=== PATIENT | female | born 1940 | race Caucasian/White ===

== ENCOUNTER 2019-05-29 23:43 | Emergency (ER) | payer MEDICARE, MEDICAID ==
--- NOTE | 2019-05-30 03:09 | ED ---
GI/ HPI - HPI Summary HPI Summary: Patient is a 78 y/o F presenting to [facility] with complaints of vaginal bleeding, N /V and abdominal pain. She states that she has been experiencing bleeding intermittently for the past three months. Patient reports that Sx worsened this evening. She has not been evaluated for these Sx previously. Sx typically resolve after 1-1.5 days. Current episode onset two days ago. She has not experienced abdominal pain with her vaginal bleeding before. Vomiting occurred two days ago. Patient notes that she became dizzy tonight. Patient was able to eat tereza crackers, Macedonian toast 05/29/19. Diarrhea is denied. On triage, pain is rated 6/10, nothing is noted to aggravate/alleviate Sx. PMHx of HLD, NE is noted. NKDA reported. She is a current smoker of tobacco but denies alcohol and substance usage. PSHx of cardiac stents, broken ankle repair noted. 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 Home medications and allergies are reviewed. - History of Current Complaint Chief Complaint: EDVaginalBleeding Time Seen by Provider: 05/30/19 02:19 Stated Complaint: VAGINAL BLEEDING/ABD PAIN PER EMS Hx Obtained From: Patient Onset/Duration: Started Days Ago, Still Present, Worse Since Timing: Lasting Days Severity: Moderate Current Severity: Moderate Pain Intensity: 6 Associated Signs and Symptoms: Positive: Dizziness, Nausea, Vomiting, Abdominal Pain. Negative: Diarrhea Additional Signs & Symptoms: Positive: Vaginal Bleeding Aggravating Factor(s): Nothing Alleviating Factor(s): Nothing - Allergy/Home Medications Allergies/Adverse Reactions: Allergies Allergy/AdvReac Type Severity Reaction Status Date / Time No Known Allergies Allergy Verified 05/29/19 23:50 PMH/Surg Hx/FS Hx/Imm Hx Cardiovascular History: Reports: Hx Hypercholesterolemia, Hx Myocardial Infarction Sensory History: Denies: Hx Legally Blind, Hx Deafness Opthamlomology History: Denies: Hx Legally Blind EENT History: Denies: Hx Deafness Neurological History: Reports: Other Neuro Impairments/Disorders - DETERIORATING LUMBAR VERTEBRAL DISC 1999 - Surgical History Surgery Procedure, Year, and Place: CORONARY STENTS, FX ANKLE REPAIR Infectious Disease History: No Infectious Disease History: Denies: Traveled Outside the [place] in Last 30 Days - Family History Known Family History: Negative: Cardiac Disease, Hypertension, Diabetes - Social History Alcohol Use: None Substance Use Type: Reports: None Smoking Status (MU): Heavy Every Day Tobacco Smoker Type: Cigarettes Amount Used/How Often: 1.5 PPD Review of Systems Positive: Abdominal Pain, Vomiting, Nausea. Negative: Diarrhea Genitourinary: Other - positive - vaginal bleeding Neurological: Other - positive - dizziness All Other Systems Reviewed And Are Negative: Yes Physical Exam - Summary Physical Exam Summary: General: Well-developed, Cachetic-appearing female. No acute distress. HEENT: Normocephalic, Atraumatic. Eyes: Conjuctiva normal, PERRL. Ears: TMs within normal limits. Nares: (-) discharge, (-) erythema. Oropharynx: Clear, mucous membranes moist, (-) exudates. Neck: Soft, FROM, (-) lymphadenopathy, (-) thyromegaly, (-) JVD. Cardiovascular: Normal sinus rhythm, (-) murmur. Lungs: Clear to auscultation bilaterally (-) wheezes, (-) rales, (-) rhonchi. Abdomen: Soft, mild epigastric discomfort, non-distended, (-) organomegaly, normal bowel sounds. Vaginal Exam: Vaginal vault is normal appearing, there is no blood in the vault or at the os. There is blood at the urethra. Back: (-) CVA tenderness Extremities: No edema. Skin: Warm, dry, (-) rash. Neuro: Alert and oriented x3, no focal deficits. Psychiatric: Mood normal, affect normal. Triage Information Reviewed: Yes Vital Signs On Initial Exam: Initial Vitals Temp Pulse Resp BP Pulse Ox 99.6 F 96 18 156/86 92 05/29/19 23:46 05/29/19 23:46 05/29/19 23:46 05/29/19 23:46 05/29/19 23:46 Vital Signs Reviewed: Yes Procedures - Sedation Patient Received Moderate/Deep Sedation with Procedure: No Diagnostics - Vital Signs Vital Signs Temp Pulse Resp BP Pulse Ox 05/30/19 01:17 92 152/76 89 05/30/19 01:00 92 90 05/30/19 00:49 93 90 05/30/19 00:47 79 142/67 87 05/29/19 23:46 99.6 F 96 18 156/86 92 - Laboratory Result Diagrams: 05/30/19 03:15 05/30/19 03:15 Lab Statement: Any lab studies that have been ordered have been reviewed, and results considered in the medical decision making process. - CT CT ABD/PEL CT Interpretation Completed By: Radiologist Summary of CT Findings: IMPRESSION: 1. Patient presents with vaginal bleeding for the past few months. The CT scan. does not show obvious thickening of the endometrial stripe. Recommend obtaining. an ultrasound study to assess the uterus and adnexa. If an etiology is not. discovered, the patient may need direct assessment of the vagina. 2. Short segment distention of the proximal small bowel measuring approximately. 3 cm. Transition appears to be in the left flank area. No bowel wall thickening. or pneumatosis. No abdominal mass is seen. Significance of this observation is. unclear. 3. Cholelithiasis. 4. Subcutaneous inflammatory changes in the posterior medial aspect left upper. thigh. This may be the beginnings of a decubitus ulcer. THIS REPORT WAS REVIEWED BY DR. BEAR. GIGU Course/Dx - Course Course Of Treatment: 78-year-old female presenting with vaginal bleeding for months. Intermittently. Mild. She has not had this checked out. Patient denies any hematuria or blood in her stool. Currently describes some abdominal discomfort. No fevers. She has some mild suprapubic tenderness on exam. Vaginal exam demonstrates no bleeding. Blood noted at the urethra. Workup demonstrates urinary tract infection. Patient given Rocephin and IV fluids. Discharged on Keflex. Advised follow-up with PCP. Follow-up sooner for any worsening symptoms. - Diagnoses Provider Diagnoses: UTI (urinary tract infection) Discharge ED - Sign-Out/Discharge Documenting (check all that apply): Patient Departure - discharge - Discharge Plan Condition: Stable Disposition: HOME Prescriptions: Cephalexin CAP* [Keflex CAP*] 500 mg PO TID #30 cap Nitrofurantoin Monohyd/M-Cryst [Macrobid 100 mg Capsule] 100 mg PO BID #14 cap Patient Education Materials: Urinary Tract Infection in Women (ED) Referrals: Ab Springer MD [Primary Care Provider] - 3 Days Additional Instructions: Please follow up with your primary care physician within three days. Please return to ED for any new or worsening symptoms. - Billing Disposition and Condition Condition: STABLE Disposition: Home - Attestation Statements Document Initiated by Scribe: Yes Documenting Scribe: GAGE FRASER Provider For Whom Scribe is Documenting (Include Credential): CARLOS BEAR MD Scribe Attestation: I, GAGE FRASER, scribed for CARLOS BEAR MD on 06/01/19 at 1940. Scribe Documentation Reviewed: Yes Provider Attestation: The documentation as recorded by the scribeGAGE accurately reflects the service I personally performed and the decisions made by me, CARLOS BEAR MD Status of Scribe Document: Viewed
[2019-05-30 03:13] LABS: Urine Appearance Cloudy; Urine Bilirubin Negative (Negative); Urine Blood 3+ (Negative); Urine Color Yellow; Urine Glucose Negative (Negative); Urine Ketones Negative (Negative); Urine Nitrite Negative (Negative); Urine Protein Negative (Negative); Urine Specific Gravity 1.006 (1.010-1.030); Urine Urobilinogen Negative (Negative)
[2019-05-30 03:20] LABS: Urine Bacteria 1+ (Absent); Urine Red Blood Cell 3+(>10/hpf) (Absent); Urine Squamous Epithelial Cell Present (Absent); Urine White Blood Cell 3+(>20/hpf) (Absent)
[2019-05-30] MEDS ORDERED: cefTRIAXone(*) 2 GM in NS 0.9% 100 ML* 100 ML IVPB ONE (03:31)
[2019-05-30 03:36] LABS: ABS Basophils 0.1 10^3/ul (0-0.2); ABS Eosinophils 0.1 10^3/ul (0-0.6); ABS Lymphocytes 3.2 10^3/ul (1.0-4.8); ABS Monocytes 0.5 10^3/ul (0-0.8); ABS Neutrophils 4.8 10^3/ul (1.5-7.7); Eosinophil % 0.8 %; Hematocrit 41 % (35-47); Hemoglobin 14.2 g/dL (12.0-16.0); Lymphocyte % 36.6 %; Mean Corpuscular HGB Conc 35 g/dL (31-36); Mean Corpuscular Hemoglobin 31 pg (27-31); Mean Corpuscular Volume 89 fL (80-97); Mean Platelet Volume 8.8 fL (7.4-10.4); Nucleated Red Blood Cells % 0.1; Platelet Count 220 10^3/uL (150-450); Red Blood Count 4.59 10^6 /uL (3.70-4.87); Red Cell Distribution Width 14 % (10-15); White Blood Count 8.7 10^3/uL (3.5-10.8)
[2019-05-30 03:44] LABS: INR 1.02 (0.82-1.09)
[2019-05-30 03:56] LABS: ALT 7 U/L (7-52); AST 12 U/L (13-39); Albumin 3.6 g/dL (3.2-5.2); Alkaline Phosphatase 94 U/L (34-104); Anion Gap 5 mmol/L (2-11); BUN/Creatinine Ratio 14.8 (8-20); Blood Urea Nitrogen 13 mg/dL (6-24); C Reactive Protein < 1.00 mg/L (<8.01); CO2 Carbon Dioxide 27 mmol/L (22-32); Calcium 9.1 mg/dL (8.6-10.3); Chloride 102 mmol/L (101-111); EGFR African American 74.8 (>60); EGFR Non-African American 61.8 (>60); Globulin 3.5 g/dL (2-4); Glucose 108 mg/dL (70-100); Potassium 3.9 mmol/L (3.5-5.0); Sodium 134 mmol/L (135-145); Total Protein 7.1 g/dL (6.4-8.9)
[2019-05-30] MEDS ORDERED: Iohexol 300* (CONTRAST) 10 ML SDV IV ONE (04:02)
[2019-05-30] MEDS ORDERED: Iodixanol 320 (CONTRAST) 100 ML SDV IV ONE (04:26)
[2019-05-30 06:24] VITALS: BP 162/76
--- NOTE | 2019-06-01 12:03 | ED ---
Imaging and Labs Follow Up Follow Up Type: Labs/Cultures Labs/Culture Result: Urine culture >100k enterobacter. Patient Communication/Plan: Pt. placed on keflex for UTI. Urine culture shows resistant to first generation ceph. Attempted to call pt. today at 1200 with no answer. Message left. Rx for macrobid sent to pharmacy. Will attempt to reach pt. tomorrow. 06/02 1203: Attempted to reach pt. again today with no answer. Will send letter to return call. Provider Diagnoses: UTI (urinary tract infection)
== END 2019-05-30 06:20 | disposition home or self-care (01) ==
LOC: ED 23:43
DX: N39.0 Urinary tract infection, site not specified (principal); N93.9 Abnormal uterine and vaginal bleeding, unspecified; R42 Dizziness and giddiness; R11.2 Nausea with vomiting, unspecified; F17.210 Nicotine dependence, cigarettes, uncomplicated; E78.00 Pure hypercholesterolemia, unspecified; I25.2 Old myocardial infarction; E78.5 Hyperlipidemia, unspecified
CPT/HCPCS: 36415; 74177; 80053; 81003; 81015; 83605; 83690; 85025; 85610; 86140; 87077; 87086; 87186; 96365; 99283; J0696; Q9967

== ENCOUNTER 2023-01-03 10:29 | Inpatient (IN) ==
[2023-01-03] MEDS ORDERED: Ondansetron 4 mg VIAL 2 MG/ML 2 ml VIAL IV ONE (11:15)
[2023-01-03] MEDS ORDERED: Morphine 4 MG/ML VIAL (1 ml) IV ONE (11:15)
[2023-01-03] MEDS ORDERED: NS 0.9% 1000 ml BAG 1,000 ML IV ONE (11:21)
[2023-01-03 11:43] LABS: ABS Lymphocytes 0.8 10^3/uL (1.0-4.8); ABS Monocytes 0.2 10^3/uL (0.0-0.9); ABS Neutrophils 6.6 10^3/uL (1.5-7.6); Eosinophil % 0.6 %; Hematocrit 42.8 % (35-45); Hemoglobin 14.5 g/dL (11.5-14.3); Lymphocyte % 10.4 %; Mean Corpuscular Hemoglobin 31.1 pg (27-33); Mean Corpuscular Hgb Conc 33.8 g/dL (31-36); Mean Corpuscular Volume 92.1 fL (80-97); Mean Platelet Volume 9.3 fL (7.5-11.2); Platelet Count 222 10^3/uL (150-450); Red Blood Count 4.64 10^6/uL (3.63-4.92); Red Cell Distribution Width 13.2 % (12-17); White Blood Count 7.6 10^3/uL (3.8-11.8)
[2023-01-03 11:58] LABS: Albumin/Globulin Ratio 1.1 (1-3); Calcium 10.4 mg/dL (8.6-10.3); Creatinine, Serum 1.06 mg/dL (0.51-0.95); Globulin 3.6 g/dL (2-4); Magnesium 1.6 mg/dL (1.9-2.7); Potassium 3.6 mmol/L (3.5-5.0); Total Bilirubin 0.5 mg/dL (0.2-1.0); Total Protein 7.6 g/dL (6.4-8.9); eGFR CKD-EPI 51.8 (>60)
[2023-01-03] MEDS ORDERED: Magnesium Sulfate 2 gm BAG 2 GM/50 ML BAG IVPB ONE (12:00)
[2023-01-03 12:04] LABS: INR 1.23 (0.88-1.18)
[2023-01-03] MEDS ORDERED: Iodixanol (CONTRAST) 320 MG/ML 100 ML SDV IV ONE (12:04)
[2023-01-03 13:31] LABS: High Sensitivity Troponin 1 Hr 46 pg/mL (<15)
[2023-01-03 14:59] LABS: Urine Appearance Cloudy; Urine Bilirubin Negative (Negative); Urine Blood 1+ (Negative); Urine Color Yellow; Urine Glucose Negative (Negative); Urine Ketones Negative (Negative); Urine Nitrite Negative (Negative); Urine Protein 1+(30 mg/dL) (Negative); Urine Specific Gravity 1.025 (1.002-1.030); Urine Urobilinogen Negative (Negative)
[2023-01-03 15:02] LABS: Urine Bacteria Absent (Absent); Urine Red Blood Cell 2+(6-10/hpf) (Absent); Urine Squamous Epithelial Cell Present (Absent); Urine White Blood Cell 1+(6-10/hpf) (Absent)
[2023-01-03] MEDS ORDERED: Furosemide 40 mg/4 ml IV VIAL IV ONE (15:19)
[2023-01-03] MEDS ORDERED: Acetaminophen IV 1 GM/100ML 1,000 MG/100 ML BAG IV PRN (15:23)
[2023-01-03] MEDS ORDERED: Lidocaine PATCH 5% PATCH TRANSDERM PRN (15:36)
[2023-01-03] MEDS: Nicotine PATCH 21 MG/24 HR PATCH TRANSDERM SCH (16:12)
[2023-01-03] MEDS ORDERED: Enoxaparin 40 MG/0.4 ML SYR SUBCUT SCH (18:00)
[2023-01-03] MEDS: Polyethylene Glycol 3350 17 GM PACKET PO SCH (18:18)
[2023-01-03] MEDS: Ondansetron 4 mg VIAL 2 MG/ML 2 ml VIAL IV PRN (20:18)
[2023-01-03] MEDS: Morphine 2 MG/ML SYRINGE IV PRN ×2 (20:50→23:54)
[2023-01-04 05:42] LABS: ABS Basophils 0.1 10^3/uL (0.0-0.1); ABS Monocytes 0.6 10^3/uL (0.0-0.9); ABS Neutrophils 6.7 10^3/uL (1.5-7.6); ABS Nucleated RBC 0.01 10^3/ul; Eosinophil % 0.2 %; Hematocrit 43.2 % (35-45); Hemoglobin 14.8 g/dL (11.5-14.3); Lymphocyte % 12.3 %; Mean Corpuscular Hemoglobin 30.9 pg (27-33); Mean Corpuscular Hgb Conc 34.3 g/dL (31-36); Mean Corpuscular Volume 90.2 fL (80-97); Mean Platelet Volume 9.2 fL (7.5-11.2); Nucleated Red Blood Cells % 0.1 /100 WBC (0.0-0.4); Platelet Count 194 10^3/uL (150-450); Red Blood Count 4.79 10^6/uL (3.63-4.92); Red Cell Distribution Width 13.1 % (12-17); White Blood Count 8.4 10^3/uL (3.8-11.8)
[2023-01-04 06:15] LABS: Calcium 9.3 mg/dL (8.6-10.3); Creatinine, Serum 1.03 mg/dL (0.51-0.95); Magnesium 1.7 mg/dL (1.9-2.7); Potassium 3.6 mmol/L (3.5-5.0); eGFR CKD-EPI 53.6 (>60)
[2023-01-04] MEDS ORDERED: Magnesium Sulfate 2 gm BAG 2 GM/50 ML BAG IVPB ONE (07:27)
[2023-01-04] MEDS ORDERED: Furosemide 40 mg/4 ml IV VIAL IV ONE (08:00)
[2023-01-04] MEDS: Nicotine PATCH 21 MG/24 HR PATCH TRANSDERM SCH (08:15)
[2023-01-04] MEDS: Polyethylene Glycol 3350 17 GM PACKET PO SCH (08:49)
[2023-01-04] MEDS: Ondansetron 4 mg VIAL 2 MG/ML 2 ml VIAL IV PRN (10:31)
[2023-01-04] MEDS: Morphine 2 MG/ML SYRINGE IV PRN (10:31)
[2023-01-04] MEDS: Lactated Ringers 1000 ml BAG 1,000 ML IV SCH ×2 (11:21→18:39)
[2023-01-04] MEDS: Sodium Chloride FLUSH 10 ml SYRINGE ONE ×2 (13:28→15:13)
[2023-01-04] MEDS: Magnesium Hydroxide LIQ 30 ML UDC ONE ×2 (13:28→15:13)
[2023-01-04] MEDS: Mineral Oil ENEMA 118 ML/BOTTLE BOTTLE PR ONE ×2 (13:29→15:13)
[2023-01-04] MEDS: GLYCERIN (BULK BTL) 177 ML PR ONE ×2 (13:29→15:12)
[2023-01-04] MEDS ORDERED: Lactated Ringers 1000 ml BAG 500 ML IV ONE (14:51)
[2023-01-04] MEDS: Heparin 5000 UNITS/ML 1 mL VIAL SUBCUT SCH (20:26)
[2023-01-05 06:11] LABS: ABS Lymphocytes 1.1 10^3/uL (1.0-4.8); ABS Neutrophils 7.7 10^3/uL (1.5-7.6); Hematocrit 40.5 % (35-45); Hemoglobin 13.8 g/dL (11.5-14.3); Lymphocyte % 11.6 %; Mean Corpuscular Hemoglobin 31.4 pg (27-33); Mean Corpuscular Hgb Conc 34.2 g/dL (31-36); Mean Corpuscular Volume 92.1 fL (80-97); Mean Platelet Volume 10.3 fL (7.5-11.2); Platelet Count 173 10^3/uL (150-450); Red Cell Distribution Width 12.9 % (12-17); White Blood Count 9.9 10^3/uL (3.8-11.8)
[2023-01-05 06:13] LABS: Calcium 8.7 mg/dL (8.6-10.3); Creatinine, Serum 1.43 mg/dL (0.51-0.95); eGFR CKD-EPI 36.2 (>60)
[2023-01-05] MEDS: Heparin 5000 UNITS/ML 1 mL VIAL SUBCUT SCH ×3 (06:17→21:45)
[2023-01-05] MEDS: Lactated Ringers 1000 ml BAG 1,000 ML IV SCH ×3 (06:20→19:55)
[2023-01-05] MEDS: Nicotine PATCH 21 MG/24 HR PATCH TRANSDERM SCH (10:03)
[2023-01-05] MEDS: Polyethylene Glycol 3350 17 GM PACKET PO SCH (10:07)
[2023-01-05] MEDS: Morphine 2 MG/ML SYRINGE IV PRN (17:49)
[2023-01-05] MEDS ORDERED: Acetaminophen IV 1 GM/100ML 1,000 MG/100 ML BAG IV SCH (19:30)
[2023-01-06] MEDS: Acetaminophen IV 1 GM/100ML 1,000 MG/100 ML BAG IV SCH ×4 (03:44→21:49)
[2023-01-06] MEDS: Lactated Ringers 1000 ml BAG 1,000 ML IV SCH ×2 (03:45→12:33)
[2023-01-06] MEDS: Heparin 5000 UNITS/ML 1 mL VIAL SUBCUT SCH ×2 (05:25→14:16)
[2023-01-06] MEDS: Nicotine PATCH 21 MG/24 HR PATCH TRANSDERM SCH (08:23)
[2023-01-06] MEDS: Polyethylene Glycol 3350 17 GM PACKET PO SCH (08:23)
[2023-01-06 08:27] LABS: ABS Lymphocytes 0.9 10^3/uL (1.0-4.8); ABS Monocytes 0.9 10^3/uL (0.0-0.9); ABS Nucleated RBC 0.01 10^3/ul; Eosinophil % 0.2 %; Hematocrit 37.6 % (35-45); Hemoglobin 12.8 g/dL (11.5-14.3); Lymphocyte % 10.3 %; Mean Corpuscular Hemoglobin 31.4 pg (27-33); Mean Corpuscular Hgb Conc 34.1 g/dL (31-36); Mean Corpuscular Volume 91.8 fL (80-97); Nucleated Red Blood Cells % 0.1 /100 WBC (0.0-0.4); Red Cell Distribution Width 12.9 % (12-17); White Blood Count 8.9 10^3/uL (3.8-11.8)
[2023-01-06 08:37] LABS: Calcium 8.2 mg/dL (8.6-10.3); Magnesium 1.8 mg/dL (1.9-2.7); Potassium 3.6 mmol/L (3.5-5.0)
[2023-01-06 08:42] LABS: Creatinine, Serum 0.91 mg/dL (0.51-0.95); eGFR CKD-EPI 62.2 (>60)
[2023-01-06 10:00] LABS: Mean Platelet Volume 10.1 fL (7.5-11.2); Platelet Count 144 10^3/uL (150-450)
[2023-01-07] MEDS: Morphine ORAL CONCENTRATE 5 MG/0.25 ML ORAL.SYRIN SL PRN
[2023-01-07] MEDS: Ondansetron ODT 4 mg TAB 4 MG TAB SL PRN ×2 (02:42→21:20)
[2023-01-07] MEDS ORDERED: Morphine 2 MG/ML SYRINGE IV ONE (03:22)
[2023-01-07] MEDS: Acetaminophen IV 1 GM/100ML 1,000 MG/100 ML BAG IV SCH ×4 (04:38→21:20)
[2023-01-07] MEDS: Nicotine PATCH 21 MG/24 HR PATCH TRANSDERM SCH (08:37)
[2023-01-07] MEDS: Polyethylene Glycol 3350 17 GM PACKET PO SCH (08:39)
[2023-01-07 10:48] VITALS: BP 96/47
[2023-01-08] MEDS: Morphine ORAL CONCENTRATE 5 MG/0.25 ML ORAL.SYRIN SL PRN (00:11)
[2023-01-08] MEDS: Acetaminophen IV 1 GM/100ML 1,000 MG/100 ML BAG IV SCH ×2 (04:33→09:51)
[2023-01-08] MEDS: Polyethylene Glycol 3350 17 GM PACKET PO SCH (08:32)
[2023-01-08] MEDS: Nicotine PATCH 21 MG/24 HR PATCH TRANSDERM SCH (08:32)
== END 2023-01-08 11:45 | DRG 374 ==
LOC: ED 10:29 → EDHOLD 10:29 → SUATTDRO 15:13 → MED 18:41
PROVIDERS: ADMIT Internal Medicine; ATTEND Internal Medicine

== ENCOUNTER 2023-05-31 10:26 | Inpatient (IN) ==
[2023-05-31] MEDS ORDERED: Famotidine IV 10 MG/ML 2 ml VIAL (20 mg) IV SLOW PU ONE (11:34)
[2023-05-31 12:11] LABS: Hematocrit 33.4 % (35-45); Hemoglobin 10.8 g/dL (11.5-14.3); Mean Corpuscular Hemoglobin 23.6 pg (27-33); Mean Corpuscular Hgb Conc 32.3 g/dL (31-36); Mean Platelet Volume 8.7 fL (7.5-11.2); Platelet Count 213 10^3/uL (150-450); Red Blood Count 4.58 10^6/uL (3.63-4.92); Red Cell Distribution Width 19.6 % (12-17); White Blood Count 14.2 10^3/uL (3.8-11.8)
[2023-05-31 12:38] LABS: ALT 16 U/L (7-52); Albumin < 1.7 g/dL (3.2-5.2); Albumin/Globulin Ratio 0.9 (1-3); Alkaline Phosphatase 151 U/L (35-149); Anion Gap 7 mmol/L (2-16); Blood Urea Nitrogen 45 mg/dL (6-24); CO2 Carbon Dioxide 24 mmol/L (22-32); Calcium 5.1 mg/dL (8.6-10.3); Chloride 102 mmol/L (101-111); Creatinine, Serum 1.07 mg/dL (0.51-0.95); Glucose 67 mg/dL (70-100); Sodium 133 mmol/L (135-145); Total Bilirubin 0.7 mg/dL (0.2-1.0); Total Protein 3.7 g/dL (6.4-8.9); eGFR CKD-EPI 51.2 (>60)
[2023-05-31 12:45] LABS: ABS Basophils 0.1 10^3/uL (0.0-0.1); ABS Lymphocytes 0.7 10^3/uL (1.0-4.8); ABS Monocytes 0.7 10^3/uL (0.0-0.9); ABS Neutrophils 12.7 10^3/uL (1.5-7.6); ABS Nucleated RBC 0.01 10^3/ul; Anisocytosis 2+; Lymphocyte % 5.1 %; Microcytosis 1+
[2023-05-31] MEDS ORDERED: Morphine 2 MG/ML SYRINGE IV ONE (12:59)
[2023-05-31] MEDS ORDERED: CALCIUM GLUCONATE 1GM/50ML NS 1 GM/50 ML BAG IV ONE (13:04)
[2023-05-31 13:42] LABS: Potassium Redraw 4.2 mmol/L (3.5-5.0)
[2023-05-31] MEDS ORDERED: D5LR 1000 ml BAG 500 ML IV ONE (14:00)
[2023-05-31] MEDS ORDERED: Iodixanol (CONTRAST) 320 MG/ML 100 ML SDV IV ONE (14:53)
[2023-05-31] MEDS ORDERED: LORazepam 2 mg VIAL 1 ml IV PUSH ONE (15:19)
[2023-05-31] MEDS ORDERED: Lorazepam PYXIS KEY PRN (15:19)
[2023-05-31] MEDS ORDERED: Ondansetron 4 mg VIAL 2 MG/ML 2 ml VIAL IV PRN (16:42)
[2023-05-31] MEDS ORDERED: Morphine 2 MG/ML SYRINGE IV PRN (16:42)
[2023-05-31] MEDS ORDERED: Senna TAB 8.6 mg TAB PO PRN (16:42)
[2023-05-31] MEDS ORDERED: Polyethylene Glycol 3350 17 GM PACKET PO PRN (16:42)
[2023-06-01 01:07] LABS: Urine Appearance Clear; Urine Bilirubin Negative (Negative); Urine Blood Negative (Negative); Urine Color Amber; Urine Glucose Negative (Negative); Urine Ketones Negative (Negative); Urine Nitrite Negative (Negative); Urine Protein Negative (Negative); Urine Specific Gravity 1.015 (1.002-1.030); Urine Urobilinogen Negative (Negative)
[2023-06-01 09:35] VITALS: BP 96/50
[2023-06-01] MEDS: Morphine ORAL CONCENTRATE 5 MG/0.25 ML ORAL.SYRIN PO PRN ×2 (14:36→21:47)
[2023-06-01] MEDS: Lidocaine PATCH 4% TOPICAL SCH (15:54)
[2023-06-02] MEDS ORDERED: Morphine 4 MG/ML VIAL (1 ml) IV PRN (00:29)
[2023-06-02] MEDS: Lidocaine PATCH 4% TOPICAL SCH (08:24)
[2023-06-02] MEDS: Morphine ORAL CONCENTRATE 5 MG/0.25 ML ORAL.SYRIN PO PRN (08:26)
[2023-06-02] MEDS ORDERED: LORazepam 2 mg VIAL 1 ml IV PUSH PRN (10:37)
[2023-06-02] MEDS ORDERED: Atropine 1% (ORAL/SL) 15 ML BTL SL PRN (10:37)
== END 2023-06-02 14:52 | disposition expired | DRG 755 ==
LOC: EDHOLD 10:26 → ED 10:26 → SUATTDRO 14:54 → MED 19:59
PROVIDERS: ADMIT Hospitalist; ATTEND Internal Medicine